=== PATIENT | female | born 1990 | race American Indian/Alaskan Native ===

== ENCOUNTER 2016-11-10 01:41 | Emergency (ER) | payer SELFPAY ==
[2016-11-10 02:58] LABS: Basophils % (Auto) 0.3 % (0.0-1.8); Eosinophils % (Auto) 3.7 % (0.0-4.3); Hematocrit 35.7 % (30.3-42.9); Hemoglobin 12.2 gm/dl (10.1-14.3); Mean Corpuscular HGB Conc 34 % (30-34); Mean Corpuscular Hemoglobin 28 pg (28-32); Mean Corpuscular Volume 82 fl (79-97); Platelet Count 295 K/mm3 (140-440); Red Blood Count 4.37 M/mm3 (3.65-5.03); Red Cell Distribution Width 13.4 % (13.2-15.2); White Blood Count 7.9 K/mm3 (4.5-11.0)
[2016-11-10 03:07] LABS: Bilirubin,Urine NEG (Negative); Blood,Urine NEG (Negative); Ketones,Urine TR mg/dL (Negative); Leukocyte Esterase,Urine TR (Negative); Mucus,Urine 3+ /HPF; Nitrite,Urine NEG (Negative); RBC,Urine < 1.0 /HPF (0.0-6.0)
[2016-11-10 03:15] LABS: Alanine Aminotransferase 13 units/L (7-56); Albumin/Globulin Ratio 1.2 %; Alkaline Phosphatase 35 units/L (35-129); Anion Gap 21 mmol/L; Blood Urea Nitrogen 9 mg/dL (7-17); Carbon Dioxide 19 mmol/L (22-30); Chloride 97.4 mmol/L (98-107); Glucose 99 mg/dL (65-100); Lipase 23 units/L (13-60); Potassium 3.4 mmol/L (3.6-5.0); Sodium 134 mmol/L (137-145); Total Protein 7.3 g/dL (6.3-8.2)
--- NOTE | 2016-11-10 05:17 | Ultrasound Report ---
FINAL REPORT EXAM: US OB \T\lt; = 14 WEEKS FETUS HISTORY: / ABD PAIN COMPARISONS: Transvaginal ultrasound of the same date FINDINGS: Transabdominal grayscale, color Doppler and M-mode 1st trimester ultrasound evaluation Single living intrauterine with recorded cardiac activity of 128 beats per minute and crown-rump length of approximately 1 centimeter corresponding to estimated gestational age of 7 weeks 0 days and delivery date of 06/29/2017. A normal appearing 3-4 millimeter yolk sac is present. Trace free fluid in the pelvis. No perigestational hemorrhage. A likely functional right ovarian cyst measures up to 2.5 cm. The ovaries are otherwise sonographically unremarkable and measure 4.6 x 2.5 x 3.2 cm on the right and 2.2 x 1.6 x 2.2 cm on the left. IMPRESSION: Single living intrauterine without evident acute complication. Estimated gestational age is 7 weeks 0 days corresponding to delivery date of 06/29/2017. Likely functional right ovarian cyst measures up to 2.5 cm. Consider additional imaging for worsening/persistent symptoms.
--- NOTE | 2016-11-10 05:17 | Ultrasound Report ---
FINAL REPORT EXAM: US OB TRANSVAGINAL HISTORY: / ABD PAIN COMPARISONS: None. FINDINGS: Transvaginal grayscale, color Doppler and M-mode 1st trimester ultrasound evaluation Single living intrauterine with recorded cardiac activity of 128 beats per minute and crown-rump length of approximately 1 centimeter corresponding to estimated gestational age of 7 weeks 0 days and delivery date of 06/29/2017. And normal appearing 3-4 millimeter yolk sac is present. Trace free fluid in the pelvis. No perigestational hemorrhage. A likely functional right ovarian cyst measures up to 2.5 cm. The ovaries are otherwise sonographically unremarkable and measure 4.6 x 2.5 x 3.2 cm on the right and 2.2 x 1.6 x 2.2 cm on the left. IMPRESSION: Single living intrauterine without evident acute complication. Estimated gestational age is 7 weeks 0 days corresponding to delivery date of 06/29/2017. Likely functional right ovarian cyst measures up to 2.5 cm. Consider additional imaging for worsening/persistent symptoms.
[2016-11-10 05:56] VITALS: BP 103/68
[2016-11-10] MEDS ORDERED: ZOFRAN ODT PO ONE (06:21)
[2016-11-10] MEDS ORDERED: TYLENOL PO ONE (06:21)
[2016-11-10] MEDS ORDERED: K-DUR PO ONE (06:21)
--- NOTE | 2016-11-10 06:35 | Emergency Department Report ---
ED Abdominal Pain HPI - General Chief Complaint: Abdominal Pain Stated Complaint: ABD PAIN Time Seen by Provider: 11/10/16 06:12 Source: patient Mode of arrival: Ambulatory Limitations: No Limitations - History of Present Illness Initial Comments: 26-year-old female presents to the hospital complaints of cramping abdominal pain that started 1 hour prior to arrival. Pain is intermittent, worse with palpation, no alleviating factors. 7/10 in intensity. Pain is less severe this time and is described as mild. Positive nausea with vomiting 2 days ago. Patient denies fever, vaginal discharge, vaginal bleeding, or dysuria. Labs revealed positive test. This is patient's fourth and she has 3 living children. - Related Data Previous Rx's Medication Instructions Recorded Last Taken Type Ibuprofen [Motrin] 800 mg PO Q8H PRN #30 tablet 07/06/14 Unknown Rx Penicillin Vk [Veetids TAB] 500 mg PO QID #40 tablet 07/06/14 Unknown Rx traMADol [Ultram] 50 mg PO Q6HR PRN #14 tablet 07/06/14 Unknown Rx Azithromycin [Zithromax Z-MICHAEL] 0 mg PO DAILY #6 tab 04/14/15 Unknown Rx Benzonatate [Tessalon Perles] 100 mg PO Q8HR #30 capsule 04/14/15 Unknown Rx HYDROcodone/APAP 5-325 [Fisher 1 - 2 each PO Q6HR PRN #12 tablet 04/14/15 Unknown Rx 5/325] Oxymetazoline 0.05% [Afrin] 1 spray NS Q12H PRN #1 bottle 04/14/15 Unknown Rx Doxylamine/Pyridoxine HCl 2 each PO QHS PRN #30 tablet. 11/10/16 Unknown Rx [Giuliana Bonilla 10-10 mg Tablet] Vit W-Ca,Fe,FA(<1 mg) 1 each PO DAILY #30 tablet 11/10/16 Unknown Rx [ Vitamins] Allergies Allergy/AdvReac Type Severity Reaction Status Date / Time sulfamethoxazole Allergy Swelling Verified 11/10/16 02:13 [From Bactrim] trimethoprim [From Bactrim] Allergy Swelling Verified 11/10/16 02:13 ED Review of Systems ROS: Stated complaint: ABD PAIN Other details as noted in HPI Comment: All other systems reviewed and negative Other: Constitutional: No fevers chills Eyes: No eye pain visual changes ENT: No ear pain or throat pain Neck: Denies pain Respiratory: Denies cough wheezing shortness of breath Cardiovascular: Denies chest pain, palpitations, syncope GI: Denies nausea, vomiting, diarrhea : Denies dysuria Musculoskeletal: Denies back pain Skin: Denies rash, lesions, erythema Neurologic: Denies headache, numbness, weakness Psychiatric: Denies suicidal ideation, hallucinations ED Past Medical Hx - Past Medical History Previous Medical History?: Yes Additional medical history: Ventricular tachycardia 2000 (normal cardiac catheterization 2000) - Surgical History Past Surgical History?: No - Social History Smoking Status: Never Smoker Substance Use Type: None - Medications Home Medications: Home Medications Medication Instructions Recorded Confirmed Last Taken Type Ibuprofen [Motrin] 800 mg PO Q8H PRN #30 tablet 07/06/14 Unknown Rx Penicillin Vk [Veetids TAB] 500 mg PO QID #40 tablet 07/06/14 Unknown Rx traMADol [Ultram] 50 mg PO Q6HR PRN #14 tablet 07/06/14 Unknown Rx Azithromycin [Zithromax Z-MICHAEL] 0 mg PO DAILY #6 tab 04/14/15 Unknown Rx Benzonatate [Tessalon Perles] 100 mg PO Q8HR #30 capsule 04/14/15 Unknown Rx HYDROcodone/APAP 5-325 [Fisher 1 - 2 each PO Q6HR PRN #12 tablet 04/14/15 Unknown Rx 5/325] Oxymetazoline 0.05% [Afrin] 1 spray NS Q12H PRN #1 bottle 04/14/15 Unknown Rx Doxylamine/Pyridoxine HCl 2 each PO QHS PRN #30 tablet. 11/10/16 Unknown Rx [Giuliana Bonilla 10-10 mg Tablet] Vit W-Ca,Fe,FA(<1 mg) 1 each PO DAILY #30 tablet 11/10/16 Unknown Rx [ Vitamins] ED Physical Exam - General Limitations: No Limitations - Other Other exam information: General: No limitations, patient is alert in no acute distress Head exam: Atraumatic, normocephalic Eyes exam: Normal appearance, pupils equal reactive to light, extraocular movements intact ENT: Moist mucous membrane, normal oropharynx Neck exam: Normal inspection, full range of motion, no meningismus nontender Respiratory exam: Clear to auscultation bilateral, no wheezes, rales, crackles Cardiovascular: Normal rate and rhythm, normal heart sounds Abdomen: Soft, nondistended, mild right suprapubic tenderness, with normal bowel sounds, no rebound, or guarding Extremity: Full range of motion normal inspection no deformity Back: Normal Inspection, full range of motion, no tenderness Neurologic: Alert, oriented x3, cranial nerves intact, no motor or sensory deficit Psychiatric: normal affect, normal mood Skin: Warm, dry, intact ED Course Vital Signs 11/10/16 11/10/16 02:13 05:52 Temperature 97.6 F 98.7 F Pulse Rate 78 77 Respiratory 18 18 Rate Blood Pressure 103/65 103/68 O2 Sat by Pulse 100 100 Oximetry - Reevaluation(s) Reevaluation #1: 11/10/16 06:32 Tylenol, Zofran, and by mouth potassium ordered ED Medical Decision Making - Lab Data Result diagrams: 11/10/16 02:25 11/10/16 02:25 Lab Results 11/10/16 11/10/16 11/10/16 Range/Units 02:25 02:25 02:25 WBC 7.9 (4.5-11.0) K/mm3 RBC 4.37 (3.65-5.03) M/mm3 Hgb 12.2 (10.1-14.3) gm/dl Hct 35.7 (30.3-42.9) % MCV 82 (79-97) fl MCH 28 (28-32) pg MCHC 34 (30-34) % RDW 13.4 (13.2-15.2) % Plt Count 295 (140-440) K/mm3 Lymph % (Auto) 17.3 (13.4-35.0) % Gregg % (Auto) 6.0 (0.0-7.3) % Eos % (Auto) 3.7 (0.0-4.3) % Baso % (Auto) 0.3 (0.0-1.8) % Lymph # 1.4 (1.2-5.4) K/mm3 Gregg # 0.5 (0.0-0.8) K/mm3 Eos # 0.3 (0.0-0.4) K/mm3 Baso # 0.0 (0.0-0.1) K/mm3 Seg Neutrophils % 72.7 H (40.0-70.0) % Seg Neutrophils # 5.8 (1.8-7.7) K/mm3 Sodium 134 L (137-145) mmol/L Potassium 3.4 L (3.6-5.0) mmol/L Chloride 97.4 L (98-107) mmol/L Carbon Dioxide 19 L (22-30) mmol/L Anion Gap 21 mmol/L BUN 9 (7-17) mg/dL Creatinine 0.5 L (0.7-1.2) mg/dL Estimated GFR > 60 ml/min BUN/Creatinine Ratio 18.00 % Glucose 99 (65-100) mg/dL Calcium 9.0 (8.4-10.2) mg/dL Total Bilirubin 0.50 (0.1-1.2) mg/dL AST 18 (5-40) units/L ALT 13 (7-56) units/L Alkaline Phosphatase 35 (35-129) units/L Total Protein 7.3 (6.3-8.2) g/dL Albumin 4.0 (3.9-5) g/dL Albumin/Globulin Ratio 1.2 % Lipase 23 (13-60) units/L HCG, Qual Positive (Negative) Urine Color (Yellow) Urine Turbidity (Clear) Urine pH (5.0-7.0) Ur Specific [place] (1.003-1.030) Urine Protein (Negative) mg/dL Urine Glucose (UA) (Negative) mg/dL Urine Ketones (Negative) mg/dL Urine Blood (Negative) Urine Nitrite (Negative) Urine Bilirubin (Negative) Urine Urobilinogen (<2.0) mg/dL Ur Leukocyte Esterase (Negative) Urine WBC (Auto) (0.0-6.0) /HPF Urine RBC (Auto) (0.0-6.0) /HPF U Epithel Cells (Auto) (0-13.0) /HPF Hyaline Casts /LPF Urine Mucus /HPF 11/10/16 Range/Units 02:41 WBC (4.5-11.0) K/mm3 RBC (3.65-5.03) M/mm3 Hgb (10.1-14.3) gm/dl Hct (30.3-42.9) % MCV (79-97) fl MCH (28-32) pg MCHC (30-34) % RDW (13.2-15.2) % Plt Count (140-440) K/mm3 Lymph % (Auto) (13.4-35.0) % Gregg % (Auto) (0.0-7.3) % Eos % (Auto) (0.0-4.3) % Baso % (Auto) (0.0-1.8) % Lymph # (1.2-5.4) K/mm3 Gregg # (0.0-0.8) K/mm3 Eos # (0.0-0.4) K/mm3 Baso # (0.0-0.1) K/mm3 Seg Neutrophils % (40.0-70.0) % Seg Neutrophils # (1.8-7.7) K/mm3 Sodium (137-145) mmol/L Potassium (3.6-5.0) mmol/L Chloride (98-107) mmol/L Carbon Dioxide (22-30) mmol/L Anion Gap mmol/L BUN (7-17) mg/dL Creatinine (0.7-1.2) mg/dL Estimated GFR ml/min BUN/Creatinine Ratio % Glucose (65-100) mg/dL Calcium (8.4-10.2) mg/dL Total Bilirubin (0.1-1.2) mg/dL AST (5-40) units/L ALT (7-56) units/L Alkaline Phosphatase (35-129) units/L Total Protein (6.3-8.2) g/dL Albumin (3.9-5) g/dL Albumin/Globulin Ratio % Lipase (13-60) units/L HCG, Qual (Negative) Urine Color Yellow (Yellow) Urine Turbidity Clear (Clear) Urine pH 5.0 (5.0-7.0) Ur Specific [place] 1.030 (1.003-1.030) Urine Protein 30 mg/dl (Negative) mg/dL Urine Glucose (UA) Neg (Negative) mg/dL Urine Ketones Tr (Negative) mg/dL Urine Blood Neg (Negative) Urine Nitrite Neg (Negative) Urine Bilirubin Neg (Negative) Urine Urobilinogen 4.0 (<2.0) mg/dL Ur Leukocyte Esterase Tr (Negative) Urine WBC (Auto) 1.0 (0.0-6.0) /HPF Urine RBC (Auto) < 1.0 (0.0-6.0) /HPF U Epithel Cells (Auto) 4.0 (0-13.0) /HPF Hyaline Casts 12 /LPF Urine Mucus 3+ /HPF - Radiology Data Radiology results: report reviewed (transvaginal ultrasound: 7 week 0 day IUP heart 128, right ovarian cyst) - Medical Decision Making Plan discharge patient home. Tylenol for pain as needed, vitamins, diclegis as needed for nausea and vomiting, and FITNESS/WELLNESS DIRECTOR follow-up will be encouraged. Patient states she has an OB to follow up with. - Differential Diagnosis , ectopic, UTI, cervicitis, vaginitis, ovarian cyst Critical Care Time: No Critical care attestation.: If time is entered above; I have spent that time in minutes in the direct care of this critically ill patient, excluding procedure time. ED Disposition Clinical Impression: 7 weeks gestation of , Right ovarian cyst, Hypokalemia Disposition: TO HOME OR SELFCARE Is pt being admited?: No Does the pt Need Aspirin: No Condition: Stable Instructions: (ED), Hypokalemia (ED), Ovarian Cyst (ED) Additional Instructions: Take the medication as prescribed. Follow up with her FITNESS/WELLNESS DIRECTOR doctor. Return if symptoms worsen. take Tylenol as needed for pain Prescriptions: Doxylamine/Pyridoxine HCl [Giuliana Bonilla 10-10 mg Tablet] 2 each PO QHS PRN #30 tablet.dr KAISERN Reason: Nausea And Vomiting Vit W-Ca,Fe,FA(<1 mg) [ Vitamins] 1 each PO DAILY #30 tablet Referrals: your, account management assistant [Other] - 3-5 Days Time of Disposition: 06:50
== END 2016-11-10 07:19 | disposition home or self-care (01) ==
LOC: ED 01:41
DX: O34.81 Maternal care for other abnormalities of pelvic organs, first trimester (principal); E87.6 Hypokalemia; N83.201 Unspecified ovarian cyst, right side; Z3A.01 Less than 8 weeks gestation of pregnancy; Z88.1 Allergy status to other antibiotic agents; Z88.2 Allergy status to sulfonamides
CPT/HCPCS: 36415; 76801; 76817; 80053; 81001; 83690; 84703; 85025; 99284; Q0162

== ENCOUNTER 2017-02-26 08:53 | Emergency (ER) | payer MEDICAID, OTHER ==
[2017-02-26 09:11] VITALS: BP 101/60
== END 2017-02-26 09:10 | disposition left against medical advice (07) ==
LOC: ED 08:53
DX: O26.892 Other specified pregnancy related conditions, second trimester (principal); S60.512A Abrasion of left hand, initial encounter; Z53.21 Procedure and treatment not carried out due to patient leaving prior to being seen by health care provider; Z3A.21 21 weeks gestation of pregnancy